=== PATIENT | female | born 1930 | race Caucasian/White ===

== ENCOUNTER 2018-11-16 20:51 | Inpatient (IN) | payer MEDICARE, MEDICAID ==
--- NOTE | 2018-11-16 22:03 | ED ---
Altered Mental Status - HPI Summary HPI Summary: 88 year old female w/ PMH of a fib and dementia presents with altered mental status for the past 2 days. Daughter states has had a cough for the past week. Has not had any fevers. Daughter states has dementia but has been more agitated than normal. States normally recognizes her but has started not to recognize her. Daughter states has been grabbing her groin lately so she wonders if she has a UTI. Has history of UTIs. States she is acting similar to when she has had a uti. She is a lethargic. She has not been complaining of any pain. Has not been voicing any chest pain shortness of breath or abdominal pain. [facility] on oxygen at the detention as needed. LEVEL 5 cavet due to patient's dementia. Patient only states that she will hit me if I touch her. - History Of Current Complaint Chief Complaint: EDAltMentalStatus Stated Complaint: AMS PER EMS Time Seen by Provider: 11/16/18 21:17 - Allergies/Home Medications Allergies/Adverse Reactions: Allergies Allergy/AdvReac Type Severity Reaction Status Date / Time banana Allergy Unknown Verified 11/16/18 21:31 Reaction Details cefdinir Allergy Unknown Verified 11/16/18 21:31 Reaction Details Cephalosporins Allergy Unknown Verified 11/16/18 21:31 Reaction Details Penicillins Allergy Unknown Verified 11/16/18 21:31 Reaction Details Home Medications: Home Medications Acetaminophen [Acetaminophen Extra Strength] 1,000 mg PO TID 11/16/18 [History Confirmed 11/16/18] Amiodarone HCl 200 mg PO DAILY 11/16/18 [History Confirmed 11/16/18] Apixaban [Eliquis] 5 mg PO DAILY WITH MEAL 11/16/18 [History Confirmed 11/16/18] Loratadine [Claritin 10 MG CAP] 10 mg PO DAILY 11/16/18 [History Confirmed 11/16] Oxycodone HCl 5 mg PO BID 11/16/18 [History Confirmed 11/16/18] Pantoprazole Sodium [Protonix] 40 mg PO DAILY 11/16/18 [History Confirmed ] Sennosides/Docusate Sodium [Docuzen 8.6-50 mg Tablet] 2 tab PO DAILY 11/16/18 [ History Confirmed 11/16/18] Simvastatin TAB(NF) [Zocor(NF)] 10 mg PO BEDTIME 11/16/18 [History Confirmed 05/05] Torsemide [Demadex 20 MG] 40 mg PO DAILY 11/16/18 [History Confirmed 11/16/18] dilTIAZem HCl [Diltiazem HCl ER] 180 mg PO DAILY 11/16/18 [History Confirmed 05/05] PMH/Surg Hx/FS Hx/Imm Hx Endocrine/Hematology History: Reports: Hx Anticoagulant Therapy Cardiovascular History: Reports: Hx Atrial Fibrillation Respiratory History: Reports: Other Respiratory Problems/Disorders Denies: Hx Asthma, Hx Chronic Obstructive Pulmonary Disease (COPD) Neurological History: Reports: Hx Dementia - Immunization History Immunizations Up to Date: Yes Infectious Disease History: Unable to Obtain/Confirm Infectious Disease History: Denies: Traveled Outside the [place] in Last 30 Days - Family History Known Family History: Positive: Non-Contributory - Social History Alcohol Use: None Substance Use Type: Reports: None Smoking Status (MU): Former Smoker Review of Systems Negative: Fever Positive: Cough Positive: dysuria - ? All Other Systems Reviewed And Are Negative: Yes Physical Exam Triage Information Reviewed: Yes Vital Signs On Initial Exam: Initial Vitals Temp Pulse Resp BP Pulse Ox 97.5 F 69 20 102/52 92 11/16/18 20:57 11/16/18 20:57 11/16/18 20:57 11/16/18 20:57 11/16/18 20:57 Vital Signs Reviewed: Yes Completion Of Physical Exam Limited Due To: Dementia Appearance: Positive: Well-Appearing Skin: Positive: Warm, Dry Head/Face: Positive: Normal Head/Face Inspection Eyes: Positive: Normal, EOMI, OMAR, Conjunctiva Clear ENT: Positive: Pharynx normal Respiratory/Lung Sounds: Positive: Clear to Auscultation, Breath Sounds Present Cardiovascular: Positive: Normal, RRR Abdomen Description: Positive: Nontender, Soft Bowel Sounds: Positive: Present Musculoskeletal: Positive: Normal Neurological: Positive: Sensory/Motor Intact, CN Intact II-III. Negative: Alert , Oriented to Person Place, Time Psychiatric: Positive: Normal - [place] Coma Scale Best Eye Response: 4 - Spontaneous Best Motor Response: 6 - Obeys Commands Best Verbal Response: 4 - Confused Coma Scale Total: 14 Diagnostics - Vital Signs Vital Signs Temp Pulse Resp BP Pulse Ox 11/16/18 21:07 67 15 94 09/02/19 20:57 97.5 F 69 20 102/52 92 - Laboratory Result Diagrams: 11/16/18 22:36 11/16/18 22:06 Lab Statement: Any lab studies that have been ordered have been reviewed, and results considered in the medical decision making process. - Radiology chest Radiology Interpretation Completed By: ED Physician Summary of Radiographic Findings: right middle lobe pneumonia - EKG No standard instances Cardiac Rate: NL EKG Rhythm: Sinus Rhythm EKG Comparison: No Significant Change Summary of EKG Findings: sinus rhythm, LBBB Re-Evaluation - Re-Evaluation First Eval Re-Evaluation Time: 23:12 Comment: is required 4 liters of oxygen here which is not here normal. Altered Mental Statu Course/Dx - Course Course Of Treatment: 88 year old female presents with altered mental status for the past 2 days. Daughter has had a cough for the past week. has had xray done last done 4 days ago neg for pneumonia. Has not had any fevers. Daughter has dementia but has been more agitated. States normally recognizes her but has started not to recognize her. Daughter has been grabbing her groin lately so she wonders if she has a UTI. Has history of UTIs. She is a lethargic. Is on oxygen at the detention occasionally but is requiring 4 liters here. On exam lungs to auscultation. patient will follow commands but is not orientated to place or time. EKG shows sinus rhythm. White blood count 15. crp elevated. urine shows no infection. chest xray shows potenital pneumonia. discussed with pharmacy about best choice of meds and they recommend aztreonam as levaquin will interact with amiodorane. discussed with hospitalists who agree to admit. - Diagnoses Differential Diagnosis/HQI/PQRI: Metabolic Disorder, Sepsis, Other - uti Provider Diagnoses: Pneumonia, Altered mental status Discharge ED - Sign-Out/Discharge Documenting (check all that apply): Patient Departure - Discharge Plan Condition: Stable Disposition: ADMITTED TO [facility] Referrals: Ej Coleman MD [Primary Care Provider] - - Billing Disposition and Condition Condition: STABLE Disposition: Admitted to [facility]
[2018-11-16 22:29] LABS: ALT 8 U/L (7-52); Albumin 3.1 g/dL (3.2-5.2); Albumin/Globulin Ratio 0.8 (1-3); Alkaline Phosphatase 84 U/L (34-104); BUN/Creatinine Ratio 17.3 (8-20); Blood Urea Nitrogen 22 mg/dL (6-24); C Reactive Protein 400.89 mg/L (<8.01); CO2 Carbon Dioxide 30 mmol/L (22-32); Calcium 8.7 mg/dL (8.6-10.3); Chloride 93 mmol/L (101-111); EGFR African American 48.1 (>60); EGFR Non-African American 39.7 (>60); Glucose 104 mg/dL (70-100); Magnesium 1.4 mg/dL (1.9-2.7); Sodium 132 mmol/L (135-145); Total Protein 7.1 g/dL (6.4-8.9)
[2018-11-16] MEDS ORDERED: Magnesium Sulfate 2 GM IV* 2 GM/50 ML BAG IVPB ONE (22:33)
[2018-11-16 22:41] LABS: Urine Appearance Cloudy; Urine Bacteria Absent (Absent); Urine Bilirubin Negative (Negative); Urine Blood 1+ (Negative); Urine Color Yellow; Urine Glucose Negative (Negative); Urine Ketones Negative (Negative); Urine Nitrite Negative (Negative); Urine Protein 1+(30 mg/dL) (Negative); Urine Red Blood Cell Trace(0-2/hpf) (Absent); Urine Squamous Epithelial Cell Present (Absent); Urine Urobilinogen Negative (Negative); Urine White Blood Cell Absent (Absent)
[2018-11-16 22:45] LABS: ABS Basophils 0.1 10^3/ul (0-0.2); ABS Eosinophils 0.1 10^3/ul (0-0.6); ABS Lymphocytes 2.3 10^3/ul (1.0-4.8); ABS Neutrophils 12.1 10^3/ul (1.5-7.7); Eosinophil % 0.5 %; Hematocrit 34 % (35-47); Hemoglobin 11.3 g/dL (12.0-16.0); Lymphocyte % 14.9 %; Mean Corpuscular HGB Conc 34 g/dL (31-36); Mean Corpuscular Hemoglobin 29 pg (27-31); Mean Corpuscular Volume 86 fL (80-97); Platelet Count 342 10^3/uL (150-450); Red Blood Count 3.92 10^6 /uL (3.70-4.87); Red Cell Distribution Width 15 % (10-15); White Blood Count 15.6 10^3/uL (3.5-10.8)
[2018-11-16 22:46] LABS: AST 16 U/L (13-39); Anion Gap 9 mmol/L (2-11); Potassium 3.8 mmol/L (3.5-5.0)
[2018-11-16 22:47] LABS: Troponin I 0.04 ng/mL (<0.04)
[2018-11-16] MEDS ORDERED: Levofloxacin 750 MG IVPREMIX(* 750 MG/150 ML BAG IVPB ONE (22:57)
[2018-11-16] MEDS ORDERED: NS 0.9% 1000 ML** 1,000 ML IV ONE (22:58)
[2018-11-16] MEDS ORDERED: Albuterol/Ipratropium NEB.SOL* Albuterol 2.5 MG/Ipratropium 0.5 MG 3 ML INH ONE (23:09)
[2018-11-16] MEDS ORDERED: Aztreonam (*) 2 GM in NS 0.9% 100 ML* 100 ML IV ONE (23:25)
[2018-11-16] MEDS ORDERED: NS 0.9% 100 ML* 100 ML ONE (23:44)
[2018-11-17] MEDS ORDERED: Acetaminophen TAB* 325 MG PO PRN (00:12)
[2018-11-17] MEDS ORDERED: Albuterol/Ipratropium NEB.SOL* Albuterol 2.5 MG/Ipratropium 0.5 MG 3 ML INH PRN (00:14)
[2018-11-17] MEDS ORDERED: DOXYcycline IV* 100 MG in NS 0.9% 250 ML* 250 ML IVPB SCH (01:00)
[2018-11-17 02:22] LABS: Troponin I 0.04 ng/mL (<0.04)
[2018-11-17] MEDS ORDERED: Vancomycin per Pharmacy* NOTE FOLLOW UP PRN (02:56)
[2018-11-17] MEDS ORDERED: Vancomycin(*) 1,250 MG IV x ONCE IVPB ONE ×2 (03:00)
[2018-11-17] MEDS: NS 0.9% 1000 ML** 1,000 ML IV SCH (04:06)
--- NOTE | 2018-11-17 04:24 | HP ---
CC: Black; Dr. Ruiz* HISTORY AND PHYSICAL: DATE OF ADMISSION: 11/17/18 PROVIDER: Gwen Canseco NP. PRIMARY CARE PROVIDER: Black. ATTENDING PHYSICIAN WHILE IN THE HOSPITAL: Dr. Maddison Tanner* (dictated by Gwen Canseco NP). CHIEF COMPLAINT: 1. Cough. 2. Confusion. HISTORY OF PRESENT ILLNESS: Ms. Sanderson is an 88-year-old female with a past medical history significant for hypertension, hyperlipidemia, atrial fibrillation, history of chronic respiratory failure with hypoxia, GERD, allergic rhinitis, constipation, dementia and lumbar stenosis who presented to the emergency room with complaints of increased confusion and cough. The patient does respond to some questions, but answers them inappropriately. When the patient was asked where she lives, she states, "Under a stump." When asked where she is, she responds, "[place]." Most of the patient's history of present illness was obtained from the daughter. The daughter reports that the patient currently resides at [facility], [place] since April and that over the past 3 weeks has had cough and congestion. She reports that the cough has been nonproductive. She has not been reporting any fevers. Daughter reports over the past couple of days the patient has had increased confusion and disorientation to the point that she is unable to recognize her daughter, which is not at baseline for her. Daughter does reports that she does have some confusion at baseline but is normal able to carry on a conversation. Over the past couple days has had increased confusion and the daughter that her symptoms were consistent with previous urinary tract infections, so she brought her in for evaluation. She did report that last evening, her urine was odorous and it looked like she had blood in her urine, so she was sent here for further evaluation. While in the emergency room, the patient had routine lab work drawn. She had a UA, which was not consistent with urinary tract infection. She did have a chest x-ray that showed probable pneumonia and she does have 15,000 white count. She is afebrile at this time. She is not tachycardic, but given her cough and congestion and new requirement for oxygen, Hospital Medicine was asked to see in consult for admission. Per the daughter, the patient's O2 saturation at [facility] [place] was 83%. The patient is requiring 4 L of nasal cannula O2 to maintain O2 saturation of 92% at this time. PAST MEDICAL HISTORY: Significant for: 1. Hypertension. 2. Hyperlipidemia. 3. Atrial fibrillation. 4. History of respiratory failure with hypoxia. 5. GERD. 6. Allergic rhinitis. 7. Constipation. 8. Lumbar stenosis 9. Dementia PAST SURGICAL HISTORY: 1. Bowel resection, Riaz procedure for ischemic bowel. 2. Appendectomy. 4. Tonsillectomy. 5. Cholecystectomy. 6. Hysterectomy. 7. Colostomy with colostomy reversal. HOME MEDICATIONS: Include: 1. Apixaban 5 mg twice daily. 2. Protonix 40 mg p.o. daily. 3. Amiodarone 200 mg p.o. daily. 4. Diltiazem 180 mg p.o. daily. 5. Claritin 10 mg p.o. daily. 6. Acetaminophen 500 mg 2 tablets 3 times daily for pain. 7. Senokot 2 tabs p.o. daily. 8. Simvastatin 10 mg p.o. daily. 9. Oxycodone 5 mg twice daily. 10. Demadex 40 mg daily. 11. Ipratropium/albuterol 1 neb every 6 hours as needed for cough and shortness of breath. 12. O2 via 2 L nasal cannula as needed for shortness of breath. ALLERGIES: BANANAS, CEFDINIR, PENICILLIN, and CEPHALOSPORINS. The daughter does report that she is unsure of the type of allergy, but believes that it was related to hives and questionable throat swelling. FAMILY HISTORY: Mother with a history of stroke. Father with diabetes. No reported history of cancer. SOCIAL HISTORY: The patient quit smoking in 1977. Prior to that, she smoked for approximately 30 years. No alcohol or illicit drug use. She is . She currently resides at [facility], [place]. Surrogate decision maker in the event she is unable to make her own decisions is her daughter, Brittanie Crockett; her phone number is [phone]. She is a DNR/DNI. REVIEW OF SYSTEMS: Difficult to obtain due to patient's participation and underlying confusion and dementia. There were no reported fevers. Daughter does report decreased appetite x2 days as the daughter does report she feeds her mother every day while at [facility] [place]. The patient denies any chest pain when asked. Daughter does report that the patient has had a cough x3 weeks. She does report that the patient did vomit x1 this morning. No diarrhea or abdominal pain. Does report chronic incontinence and urine with strong odor. No weakness on one side. Denies any visual complaints, No reports dysphagia. She does have a pressure sore to her right buttocks. She has had increased confusion for 2 days. PHYSICAL EXAMINATION GENERAL: Ms. Sanderson is alert, resting on the stretcher in the emergency room. She is confused to person and place and time. Staff reports that she has been threatening to hit staff if they touch her. VITAL SIGNS: Blood pressure 102/52, heart rate is 67, respirations are 15, O2 saturation is 94% on 4 L nasal cannula, temperature was 97.5. HEENT: Head is atraumatic, normocephalic. Eyes: EOMs are intact. Sclerae anicteric and not pale. Oral mucosa appeared to be dry. NECK: Supple. LUNGS: With scattered rhonchi and expiratory wheezes bilaterally. She does have a moist congested cough that is nonproductive. CARDIAC: S1, S2. Regular rate and rhythm. No rubs or gallops. ABDOMEN: Obese, round, soft, nontender. Bowel sounds are present x4. EXTREMITIES: She is able to move all 4 extremities. There is no clubbing or cyanosis. NEUROLOGIC: She is alert. She is confused to person, place, and time. She answers questions inappropriately, but currently does deny pain. Her speech is clear. There is no facial asymmetry. SKIN: She does have an open wound to her buttocks. LABORATORY DATA AND DIAGNOSTIC STUDIES: WBCs are 15.6, RBCs 3.92, hemoglobin 11.3, hematocrit 34, platelet count 342. Sodium 132, potassium 3.8, chloride 93 , carbon dioxide is 30, anion gap is 9, BUN was 22, creatinine 1.27, glucose was 104, lactic acid 1.3, calcium 8.7, magnesium was 1.4. T-bili was 0.6, ASTs were 16, ALTs were 8, alkaline phosphatase was 84. Troponin was 0.04. C- reactive protein was 400.89. BNP was 215. Urine was within normal limits with the exception of protein was +1, blood was +1, squamous epithelial cells present , and hyaline casts were present. The patient had electrocardiogram, which showed sinus rhythm at a rate of 66, QTc of 507 with a left bundle-branch block, which is consistent. She did have a left bundle-branch block on previous EKG when compared to 11/09/11. Chest x-ray is concerning for pneumonia in the right lower lobe. Formal radiology reading is currently pending. Blood cultures are currently pending. Urine culture is currently pending. ASSESSMENT AND PLAN: Ms. Sanderson is an 88-year-old female with past medical history significant for paroxysmal atrial fibrillation; on chronic anticoagulation with apixaban, hypertension, hyperlipidemia, gastroesophageal reflux disease, history of hypoxic respiratory failure, constipation, lumbar stenosis, and chronic pain who was brought to the emergency room with increased confusion, cough, questionable urinary tract infection. She will be admitted inpatient for: 1. Cough. I suspect her cough is related to underlying pneumonia. She does have an elevated white count at 15.7. She does have a moist nonproductive cough and hypoxia on room air of 83%. Chest x-ray is concerning for pneumonia right lower lobe. The patient is currently on amiodarone with a QTc of 507 but has LBBB which could limit the accuracy of the QTC , she also has allergies to cephalosporins and penicillin. At this time, I will place her on Vancomycin as per pharmacy and aztreonam 1 g q.8 hours. Blood cultures are currently pending. I will send a urine for Legionella and Streptococcus pneumoniae. She is currently on oxygen at 4L. We will continue oxygen at 4 L and monitor . She will placed on nebulizer as needed for shortness of breath. 2. Confusion. Per the daughter the patient is more confused then her based for the past 2 days. This is likely due to her underlying pneumonia complicated by underlying . 3. Elevated troponin. The patient does have an elevated troponin of 0.04. We will continue to trend her troponin. When asked about chest pain, the patient replies "no chest pain." I will repeat an EKG in the a.m. and continue to trend her troponins x2 more. I suspect this is related to demand ischemia from her underlying pneumonia. 4. Hypomagnesemia. The patient does have a magnesium level of 1.4. She was given 2 g of magnesium in the emergency room. We will repeat a magnesium level in the morning and treat as needed. 5. Hyponatremia. The patient does have a sodium of 132. She was given 1 L of normal saline in the emergency room. I will repeat BMP in the a.m. 6. Elevated creatinine. The patient does have an elevation in her creatinine when compared to 10/12/18. I suspect this could be related to her Demadex and decreased p.o. intake. She did receive 1 L of normal saline in the emergency room. We will repeat a BMP in the a.m. We will avoid nephrotoxic medications. 7. Hyperlipidemia. She should continue on simvastatin as previously prescribed. 8. Paroxysmal atrial fibrillation. She should continue on amiodarone, eliquis and diltiazem as previously prescribed. 9. Chronic pain, lumbar stenosis. She is currently on Tylenol 650 mg 3 times a day. We should continue this. She also takes oxycodone twice daily. We will continue her oxycodone. 10. FEN. She can have a regular diet. 11. Code status. She is a DNR/DNI. 12. DVT prophylaxis. We will continue her Eliquis. TIME SPENT: Time spent on this admission was 60 minutes, greater than half that time was spent at the bedside reviewing events leading thus far to her hospitalization, performing physical exam, and reviewing my plan of care. I have discussed this with my attending, Dr. Maddison Tanner; she is in agreement with my plan. GWEN CANSECO, SUBHA [id number]/[facility] #: [id number] [place]
[2018-11-17 06:58] LABS: INR 2.11 (0.82-1.09)
[2018-11-17 07:08] LABS: ABS Eosinophils 0.1 10^3/ul (0-0.6); ABS Monocytes 0.7 10^3/ul (0-0.8); BUN/Creatinine Ratio 18.3 (8-20); Calcium 8.7 mg/dL (8.6-10.3); EGFR African American 48.5 (>60); EGFR Non-African American 40.1 (>60); Eosinophil % 0.5 %; HDL Cholesterol 26.6 mg/dL; Hematocrit 34 % (35-47); Hemoglobin 10.9 g/dL (12.0-16.0); Lymphocyte % 14.7 %; Magnesium 1.8 mg/dL (1.9-2.7); Mean Corpuscular HGB Conc 32 g/dL (31-36); Mean Corpuscular Hemoglobin 28 pg (27-31); Mean Corpuscular Volume 87 fL (80-97); Mean Platelet Volume 7.9 fL (7.4-10.4); Platelet Count 320 10^3/uL (150-450); Potassium 3.5 mmol/L (3.5-5.0); Red Blood Count 3.91 10^6 /uL (3.70-4.87); Red Cell Distribution Width 15 % (10-15); White Blood Count 13.8 10^3/uL (3.5-10.8)
[2018-11-17 07:33] LABS: Troponin I 0.04 ng/mL (<0.04)
[2018-11-17] MEDS ORDERED: Aztreonam (*) 1 GM in NS 0.9% 50 ML* 50 ML IVPB SCH ×2 (08:00→10:00)
[2018-11-17] MEDS: Amiodarone TAB* 200 MG PO SCH (09:39)
[2018-11-17] MEDS: Diltiazem CD CAP* 180 MG PO SCH (09:39)
[2018-11-17] MEDS: Pantoprazole TAB * 40 MG TAB PO SCH (09:39)
[2018-11-17] MEDS: Apixaban* 5 MG TAB PO SCH ×2 (09:39→20:18)
[2018-11-17] MEDS: Senna TAB 8.6 mg* TAB PO SCH (09:44)
[2018-11-17] MEDS: Cetirizine* 10 MG TAB PO SCH (09:47)
[2018-11-17] MEDS: Docusate CAP* 100 MG PO SCH (09:48)
[2018-11-17] MEDS: oxyCODONE TAB* 5 MG TAB PO SCH ×2 (10:26→20:17)
--- NOTE | 2018-11-17 15:00 | PN ---
Subjective Date of Service: 11/17/18 Interval History: Ms. Sanderson is feeling fine today. She will look at me to speak 1-2 words then fall back asleep. She is not sure where she is, but is able to tell me her name. She does not think she has any SOB or CP. No concerns from nursing. Family History: Unchanged from Admission Social History: Unchanged from Admission Past Medical History: Unchanged from Admission Objective Active Medications: Acetaminophen (Tylenol Tab*) 650 mg PO Q4H PRN MILD PAIN or TEMP > 100.4 Albuterol/Ipratropium (Duoneb (Albuterol 2.5 Mg/Ipratropium 0.5 Mg)) 1 neb INH [id number] AWAKE PRN sob/wheexing Amiodarone HCl (Cordarone Tab*) 200 mg PO DAILY [facility] Apixaban (Eliquis*) 5 mg PO BID [facility] Atorvastatin Calcium (Lipitor*) 5 mg PO BEDTIME [facility] Cetirizine HCl (Zyrtec*) 10 mg PO DAILY [facility] Diltiazem HCl (Cardizem Cd Cap*) 180 mg PO DAILY [facility] Docusate Sodium (Colace Cap*) 100 mg PO DAILY [facility] Sodium Chloride (Ns 0.9% 1000 Ml) 1,000 mls @ 75 mls/hr IV PER RATE [facility] Vancomycin HCl 1,000 mg/ (Sodium Chloride) 250 mls @ 166.667 mls/hr IVPB Q24H [facility] Oxycodone HCl (Roxycodone Tab*) 5 mg PO BID [facility] Pantoprazole Sodium (Protonix Tab*) 40 mg PO DAILY [facility] Senna (Senokot 8.6 Mg Tab*) 2 tab PO DAILY [facility] Vital Signs - 8 hr 11/17/18 11/17/18 11/17/18 08:55 10:26 10:57 Temperature 98.6 F Pulse Rate 75 Respiratory 18 18 18 Rate Blood Pressure 123/48 (mmHg) O2 Sat by Pulse 97 Oximetry 11/17/18 11/17/18 12:15 12:53 Temperature 97.5 F Pulse Rate 65 Respiratory 16 18 Rate Blood Pressure 101/43 (mmHg) O2 Sat by Pulse 99 Oximetry Oxygen Devices in Use Now: Nasal Cannula - 4L Appearance: Elderly female sitting in bed in NAD Eyes: No Scleral Icterus Ears/Nose/Mouth/Throat: Mucous Membranes Moist Neck: NL Appearance and Movements; NL JVP, Trachea Midline Respiratory: Symmetrical Chest Expansion and Respiratory Effort, - - Scattered rhonchi Cardiovascular: NL Sounds; No Murmurs; No JVD Abdominal: NL Sounds; No Tenderness; No Distention Extremities: No Edema Neurological: - - Oriented to self Lines/Tubes/Other Access: Clean, Dry and Intact Peripheral IV Nutrition: Taking PO's Result Diagrams: 11/17/18 06:46 11/17/18 06:46 Assess/Plan/Problems-Billing Assessment: Ms. Sanderson is an 88 yo F with PMH of afib, HTN, GERD, and questionable dementia ; who presented to the ED with AMS and cough and was found to have pneumonia. - Patient Problems (1) Community acquired pneumonia Code(s): J18.9 - PNEUMONIA, UNSPECIFIED ORGANISM Comment: - Noted to be hypoxic in the low 80s at SNF - CXR showing early pneumonia in the RLL - Positive strep pneumo urine antigen - Continue vanco; d/c aztreonam (2) Altered mental status Code(s): R41.82 - ALTERED MENTAL STATUS, UNSPECIFIED Comment: - With underlying dementia, appears to be improving - Suspect secondary to pneumonia (3) Acute on chronic respiratory failure with hypoxemia Code(s): J96.21 - ACUTE AND CHRONIC RESPIRATORY FAILURE WITH HYPOXIA Comment: - Baseline 2L PRN, now requring 4L to maintain saturations in the 90s - Secondary to pneumonia - Plan as above (4) ALTAF (acute kidney injury) Code(s): N17.9 - ACUTE KIDNEY FAILURE, UNSPECIFIED Comment: - Creatinine elevated from baseline - Continue IVF (5) Atrial fibrillation Code(s): I48.91 - UNSPECIFIED ATRIAL FIBRILLATION Comment: - EKG on admission shows NSR - Continue amiodarone, diltiazem, Eliquis (6) Hyperlipidemia Code(s): E78.5 - HYPERLIPIDEMIA, UNSPECIFIED Comment: - Continue atorvastatin (7) Chronic back pain Code(s): M54.9 - DORSALGIA, UNSPECIFIED; G89.29 - OTHER CHRONIC PAIN Comment: - Secondary to lumbar stenosis - Continue oxycodone (8) DVT prophylaxis Code(s): Z29.9 - ENCOUNTER FOR PROPHYLACTIC MEASURES, UNSPECIFIED Comment: - Eliquis (9) DNR (do not resuscitate) Comment: Status and Disposition: Inpatient. Anticipate d/c back to [facility] when medically stable. Attending: Irina Dutton
[2018-11-17] MEDS: Vancomycin(*) 1,000 MG in NS 0.9% 250 ML* 250 ML IVPB SCH (15:29)
--- NOTE | 2018-11-17 15:31 | CONSULT ---
Subjective Date of Service: 11/17/18 Interval History: Ms. Sanderson is an 88 yo female with PMH significant for HTN, HLD, A fib, chronic respiratory failure, GERD, constipation, and lumbar stenosis; who presented to the emergency room with complaints of confusion and cough. She present to the hospital with an open ulcer to her buttocks. Patient seen and examined at bedside. Family History: Unchanged from Admission Social History: Unchanged from Admission Past Medical History: Unchanged from Admission Review of Systems - Measurements Intake and Output: Intake and Output Last 24 Hours 11/15/18 11/16/18 11/17/18 11/18/18 06:59 06:59 06:59 06:59 Intake Total 1520 890 Output Total 0 Balance 1520 890 Weight 173 lb Intake: IV Fluids 1180 320 ABX - VANCOMYCIN 30 NS (0.9%) 100 320 IVPB 100 ABX - VANCOMYCIN 100 Oral 240 570 Output: Urine 0 Other: Estimated Void Large # Voids 1 - Review of Systems Constitutional Symptoms: Negative: Fever, Other - Chills Dermatology: Positive: Other - Wound to buttocks Objective Active Medications: Acetaminophen (Tylenol Tab*) 650 mg PO Q4H PRN Reason: MILD PAIN or TEMP > 100.4 Albuterol/Ipratropium (Duoneb (Albuterol 2.5 Mg/Ipratropium 0.5 Mg)) 1 neb INH [id number] AWAKE PRN Reason: sob/wheexing Amiodarone HCl (Cordarone Tab*) 200 mg PO DAILY [facility] Apixaban (Eliquis*) 5 mg PO BID [facility] Atorvastatin Calcium (Lipitor*) 5 mg PO BEDTIME [facility] Cetirizine HCl (Zyrtec*) 10 mg PO DAILY [facility] Diltiazem HCl (Cardizem Cd Cap*) 180 mg PO DAILY [facility] Docusate Sodium (Colace Cap*) 100 mg PO DAILY [facility] Sodium Chloride (Ns 0.9% 1000 Ml) 1,000 mls @ 75 mls/hr IV PER RATE [facility] Vancomycin HCl 1,000 mg/ (Sodium Chloride) 250 mls @ 166.667 mls/hr IVPB Q24H [facility] Oxycodone HCl (Roxycodone Tab*) 5 mg PO BID [facility] Pantoprazole Sodium (Protonix Tab*) 40 mg PO DAILY [facility] Pharmacy Consult (Vancomycin Per Pharmacy*) 1 note FOLLOW UP . PRN Reason: PER PROTOCOL Pharmacy Profile Note (Vancomycin Trough Check) 1 note FOLLOW UP 1530 ONE Stop: 11/19/18 15:31 Senna (Senokot 8.6 Mg Tab*) 2 tab PO DAILY [facility] Vital Signs 11/17/18 11/17/18 12:15 12:53 Temperature 97.5 F Pulse Rate 65 Respiratory 16 18 Rate Blood Pressure 101/43 (mmHg) O2 Sat by Pulse 99 Oximetry Oxygen Devices in Use Now: Nasal Cannula - 4L Appearance: NAD, laying in bed Ears/Nose/Mouth/Throat: Mucous Membranes Moist Respiratory: Symmetrical Chest Expansion and Respiratory Effort Skin: - - See skin note below Neurological: - - Alert and Confused, oriented to person Nutrition: Taking PO's Result Diagrams: 11/17/18 06:46 11/17/18 06:46 Skin Deviation Note - Skin Deviation Findings Right sacrum - Wound measures 0.9 cm x 1 cm x 0.2 cm. The wound base is red granulation tissue. The surrounding skin with blanchable erythema. There is no drainage. Wound Problem/Plan Assessment: Ms. Sanderson is an 88 yo female with PMH significant for HTN, HLD, A fib, chronic respiratory failure, GERD, constipation, and lumbar stenosis; who presented to the emergency room with complaints of confusion and cough. She present to the hospital with an open ulcer to her buttocks. She was admitted to the hospital for PNA. 1. Right sacral stage 2 pressure injury. Recommend applying barrier cream ( orange top) as needed. Frequent turning and repositioning. Consider obtaining a prealbumin level to evaluate nutritional status. 2. Community acquired PNA. Management per primary medicine team. 3. Diet. Regular diet. 4. Code Status. DNR/DNI. 5. Disposition. Inpatient, disposition per primary medicine team. Is Patient a Wound Clinic Patient: No Counseling and/or Coordination of Care Minutes: 25 Points of Discussion: TIME SPENT: Time spent on this wound consultation was 25 minutes and 15 minutes was spent with the patient discussing past medical history; assessing, measuring , and photographing the wound. Attending: Marlyn Carmona
[2018-11-17] MEDS ORDERED: Magnesium Sulfate 2 GM IV* 2 GM/50 ML BAG IVPB ONE (16:51)
[2018-11-17] MEDS: Atorvastatin* 10 MG TAB PO SCH (20:18)
[2018-11-18] MEDS: NS 0.9% 1000 ML** 1,000 ML IV SCH (02:43)
[2018-11-18 06:46] LABS: ABS Eosinophils 0.2 10^3/ul (0-0.6); ABS Lymphocytes 1.5 10^3/ul (1.0-4.8); ABS Monocytes 0.7 10^3/ul (0-0.8); ABS Neutrophils 6.9 10^3/ul (1.5-7.7); Eosinophil % 2.2 %; Hematocrit 30 % (35-47); Lymphocyte % 15.8 %; Mean Corpuscular HGB Conc 33 g/dL (31-36); Mean Corpuscular Hemoglobin 29 pg (27-31); Mean Corpuscular Volume 86 fL (80-97); Mean Platelet Volume 7.5 fL (7.4-10.4); Platelet Count 306 10^3/uL (150-450); Red Blood Count 3.51 10^6 /uL (3.70-4.87); Red Cell Distribution Width 15 % (10-15); White Blood Count 9.3 10^3/uL (3.5-10.8)
[2018-11-18 07:15] LABS: BUN/Creatinine Ratio 19.8 (8-20); Calcium 8.3 mg/dL (8.6-10.3); EGFR African American 80.7 (>60); EGFR Non-African American 66.7 (>60); Magnesium 1.7 mg/dL (1.9-2.7); Potassium 3.3 mmol/L (3.5-5.0)
[2018-11-18] MEDS: Senna TAB 8.6 mg* TAB PO SCH (09:40)
[2018-11-18] MEDS: Pantoprazole TAB * 40 MG TAB PO SCH (09:41)
[2018-11-18] MEDS: Docusate CAP* 100 MG PO SCH (09:41)
[2018-11-18] MEDS: Amiodarone TAB* 200 MG PO SCH (09:41)
[2018-11-18] MEDS: oxyCODONE TAB* 5 MG TAB PO SCH ×2 (09:42→20:16)
[2018-11-18] MEDS: Cetirizine* 10 MG TAB PO SCH (09:42)
[2018-11-18] MEDS: Diltiazem CD CAP* 180 MG PO SCH (09:42)
[2018-11-18] MEDS: Apixaban* 5 MG TAB PO SCH ×2 (09:43→20:16)
[2018-11-18] MEDS: Vancomycin(*) 1,000 MG in NS 0.9% 250 ML* 250 ML IVPB SCH (16:11)
--- NOTE | 2018-11-18 17:31 | PN ---
Subjective Date of Service: 11/18/18 Interval History: Ms. Sanderson is not feeling well today. She is quite irritable and not able to tell me what, if anything, is bothering her. When told she was in the hospital she was not sure why and was agitated about the situation. Denies CP or SOB. Nursing reports agitation throughout the day. Family History: Unchanged from Admission Social History: Unchanged from Admission Past Medical History: Unchanged from Admission Objective Active Medications: Acetaminophen (Tylenol Tab*) 650 mg PO Q4H PRN MILD PAIN or TEMP > 100.4 Albuterol/Ipratropium (Duoneb (Albuterol 2.5 Mg/Ipratropium 0.5 Mg)) 1 neb INH [id number] AWAKE PRN sob/wheexing Amiodarone HCl (Cordarone Tab*) 200 mg PO DAILY [facility] Apixaban (Eliquis*) 5 mg PO BID [facility] Atorvastatin Calcium (Lipitor*) 5 mg PO BEDTIME [facility] Cetirizine HCl (Zyrtec*) 10 mg PO DAILY [facility] Diltiazem HCl (Cardizem Cd Cap*) 180 mg PO DAILY [facility] Docusate Sodium (Colace Cap*) 100 mg PO DAILY [facility] Sodium Chloride (Ns 0.9% 1000 Ml) 1,000 mls @ 75 mls/hr IV PER RATE [facility] Vancomycin HCl 1,000 mg/ (Sodium Chloride) 250 mls @ 166.667 mls/hr IVPB Q24H [facility] Oxycodone HCl (Roxycodone Tab*) 5 mg PO BID [facility] Pantoprazole Sodium (Protonix Tab*) 40 mg PO DAILY [facility] Senna (Senokot 8.6 Mg Tab*) 2 tab PO DAILY [facility] Vital Signs - 8 hr 11/18/18 11/18/18 11/18/18 09:42 11:47 12:16 Temperature 97.9 F Pulse Rate 66 Respiratory 22 20 18 Rate Blood Pressure 110/40 (mmHg) O2 Sat by Pulse 97 Oximetry Oxygen Devices in Use Now: Nasal Cannula - 2L Appearance: Elderly female laying in bed in NAD Eyes: No Scleral Icterus Ears/Nose/Mouth/Throat: Mucous Membranes Moist Neck: NL Appearance and Movements; NL JVP, Trachea Midline Respiratory: Symmetrical Chest Expansion and Respiratory Effort, - - Diminished throughout Cardiovascular: NL Sounds; No Murmurs; No JVD, RRR Abdominal: NL Sounds; No Tenderness; No Distention Extremities: No Edema Neurological: - - Oriented to self Lines/Tubes/Other Access: Clean, Dry and Intact Peripheral IV Nutrition: Taking PO's Result Diagrams: 11/18/18 06:31 11/18/18 06:31 Assess/Plan/Problems-Billing Assessment: Ms. Sanderson is an 88 yo F with PMH of afib, HTN, GERD, and questionable dementia ; who presented to the ED with AMS and cough and was found to have pneumonia. - Patient Problems (1) Community acquired pneumonia Code(s): J18.9 - PNEUMONIA, UNSPECIFIED ORGANISM Comment: - Noted to be hypoxic in the low 80s at SNF - CXR showing early pneumonia in the RLL - Positive strep pneumo urine antigen - Spoke with ID who recommends transitioning to Levaquin 250mg daily at d/c due to allergies - Continue vanco (2) Altered mental status Code(s): R41.82 - ALTERED MENTAL STATUS, UNSPECIFIED Comment: - With underlying dementia, appears to be improving and is agitated today - Suspect secondary to pneumonia (3) Acute on chronic respiratory failure with hypoxemia Code(s): J96.21 - ACUTE AND CHRONIC RESPIRATORY FAILURE WITH HYPOXIA Comment: - Back to baseline oxygen requirements - Secondary to pneumonia (4) ALTAF (acute kidney injury) Code(s): N17.9 - ACUTE KIDNEY FAILURE, UNSPECIFIED Comment: - Resolved with IVF (5) Atrial fibrillation Code(s): I48.91 - UNSPECIFIED ATRIAL FIBRILLATION Comment: - EKG on admission shows NSR - Continue amiodarone, diltiazem, Eliquis (6) Hyperlipidemia Code(s): E78.5 - HYPERLIPIDEMIA, UNSPECIFIED Comment: - Continue atorvastatin (7) Chronic back pain Code(s): M54.9 - DORSALGIA, UNSPECIFIED; G89.29 - OTHER CHRONIC PAIN Comment: - Secondary to lumbar stenosis - Continue oxycodone (8) DVT prophylaxis Code(s): Z29.9 - ENCOUNTER FOR PROPHYLACTIC MEASURES, UNSPECIFIED Comment: - Eliquis (9) DNR (do not resuscitate) Comment: Status and Disposition: Inpatient. Anticipate d/c back to [facility] when medically stable. Attending: Irina Dutton
[2018-11-18] MEDS: Atorvastatin* 10 MG TAB PO SCH (20:17)
[2018-11-19] MEDS: Diltiazem CD CAP* 180 MG PO SCH (09:11)
[2018-11-19] MEDS: Apixaban* 5 MG TAB PO SCH (09:11)
[2018-11-19] MEDS: Amiodarone TAB* 200 MG PO SCH (09:11)
[2018-11-19] MEDS: Pantoprazole TAB * 40 MG TAB PO SCH (09:11)
[2018-11-19] MEDS: Cetirizine* 10 MG TAB PO SCH (09:12)
[2018-11-19] MEDS: Docusate CAP* 100 MG PO SCH (09:12)
[2018-11-19] MEDS: Senna TAB 8.6 mg* TAB PO SCH (09:12)
[2018-11-19] MEDS: oxyCODONE TAB* 5 MG TAB PO SCH (09:13)
[2018-11-19] MEDS ORDERED: Magnesium Oxide TAB* 400 MG PO SCH (11:00)
[2018-11-19] MEDS ORDERED: Potassium Chlor TAB* 10 MEQ TAB.ER PO SCH (11:00)
[2018-11-19] MEDS ORDERED: Levofloxacin TAB* 500 MG PO SCH (11:00)
--- NOTE | 2018-11-19 11:05 | PN ---
Progress Note - Progress Note Date of Service: 11/19/18 Note: Time spent on discharge including exam of patient, discussion with patient, nurse, CM, pharmacist review of EMR and preparation of discharge documents is 45 minutes.
[2018-11-19 11:37] VITALS: BP 110/32
--- NOTE | 2018-11-19 11:37 | TRS ---
TRANSFER SUMMARY: DATE OF ADMISSION: 11/17/18 DATE OF TRANSFER: 11/19/18 HISTORY: This 88-year-old woman was transferred from [facility] with chief complaint of cough and confusion. She has a long history of dementia. I am not sure how much worse her confusion was. Apparently, the daughter reported that the patient has had 3 weeks of cough and congestion, nonproductive cough. No fever was noted. The daughter thought the patient had increased confusion and disorientation and could not recognize the daughter which is not baseline for the patient. In the emergency room, there was a question of right lower lobe pneumonia. White count was 15,000. Urine pneumococcal antigen was positive. The patient was treated with vancomycin in the hospital because of her PENICILLIN allergy. She will be changed to levofloxacin. She will get a first dose here in the hospital and receive 4 more doses as an outpatient. She was somewhat irritable but more less cooperative. She gave her age as 42. She could not really answer any other questions. She was able to say her whole name, however. FINAL DIAGNOSES: 1. Pneumococcal pneumonia. 2. Dementia. 3. Paroxysmal atrial fibrillation. 4. Hyperlipidemia. 5. Chronic back pain. DISCHARGE MEDICATIONS: 1. Levofloxacin 500 mg daily for 4 doses as an outpatient. 2. Magnesium oxide 400 mg daily. 3. Potassium chloride 10 mEq daily. 4. Oxycodone 5 mg b.i.d. 5. Simvastatin 10 mg h.s. 6. Acetaminophen 1000 mg t.i.d. 7. Sennosides docusate 2 tablets daily. 8. Loratadine 10 mg daily. 9. Diltiazem 180 mg daily. 10. Pantoprazole 40 mg daily. 11. Amiodarone 200 mg daily. 12. Apixaban 5 mg b.i.d. 13. Torsemide has been reduced to 20 mg daily. DISPOSITION ON DISCHARGE: Discharged to [facility]. CONDITION ON DISCHARGE: Stable. [id number]/[facility] #: [id number] [facility]
[2018-11-19] MEDS ORDERED: Vancomycin Trough Check NOTE FOLLOW UP ONE (15:30)
[2018-11-20] MEDS ORDERED: Levofloxacin TAB* 250 MG PO SCH (11:00)
== END 2018-11-19 14:00 | DRG 193 ==
LOC: ED 20:51 → MEDTELE 11-17 00:12
PROVIDERS: ADMIT Student in an Organized Health Care Education/Training Program; ATTEND Internal Medicine
DX: J13 Pneumonia due to Streptococcus pneumoniae (principal); J96.21 Acute and chronic respiratory failure with hypoxia; E87.1 Hypo-osmolality and hyponatremia; N17.9 Acute kidney failure, unspecified; F03.90 Unspecified dementia, unspecified severity, without behavioral disturbance, psychotic disturbance, mood disturbance, and anxiety; R40.2362 Coma scale, best motor response, obeys commands, at arrival to emergency department; R40.2142 Coma scale, eyes open, spontaneous, at arrival to emergency department; R40.2242 Coma scale, best verbal response, confused conversation, at arrival to emergency department; I44.7 Left bundle-branch block, unspecified; I10 Essential (primary) hypertension; E78.5 Hyperlipidemia, unspecified; J30.9 Allergic rhinitis, unspecified; L89.319 Pressure ulcer of right buttock, unspecified stage; I48.0 Paroxysmal atrial fibrillation; M48.061 Spinal stenosis, lumbar region without neurogenic claudication; G89.29 Other chronic pain; R79.89 Other specified abnormal findings of blood chemistry; E83.42 Hypomagnesemia; Z66 Do not resuscitate; Z87.440 Personal history of urinary (tract) infections; Z87.891 Personal history of nicotine dependence; Z88.1 Allergy status to other antibiotic agents; Z88.0 Allergy status to penicillin; Z91.018 Allergy to other foods; Z90.49 Acquired absence of other specified parts of digestive tract; Z90.710 Acquired absence of both cervix and uterus; Z82.3 Family history of stroke; Z83.3 Family history of diabetes mellitus; Z79.01 Long term (current) use of anticoagulants
CPT/HCPCS: 36415; 71045; 80048; 80053; 80061; 81003; 81015; 83605; 83735; 83880; 84484; 85025; 85610; 86140; 87040; 87077; 87205; 87641; 87899; 93005; 99284; A9270-GY; J3370; J3475